=== PATIENT | female | born 1990 | race Caucasian/White ===

== ENCOUNTER 2018-10-10 14:09 | Emergency (ER) | payer SELFPAY ==
--- NOTE | 2018-10-10 16:17 | ER Document Report ---
HPI - HPI Patient complains to provider of: Dental pain Time Seen by Provider: 10/10/18 16:17 Pain Level: 4 Notes: This is a 27-year-old female with a history of anxiety and depression and mild seasonal asthma not on any medication presenting with toothache. Patient states this has been ongoing for about 7 days. Patient describes the pain in the mouth as a 6 out of 10, sharp, aching, is located in the right upper posterior part of the mouth. Patient denies any difficulty swallowing. Patient denies any difficulty handling secretions. Patient states normal appetite and fluid intake. Patient denies any fever or chills. Patient denies any radiation of pain into the neck. Patient states that chewing, and hot and cold make the pain worse. Palpation makes pain worse and rest makes it better. Patient denies any difficulty breathing. Patient denies all complaints at this time. Patient is here for antibiotics. No recent antibiotics or steroids. No history of diabetes. She states she broke this tooth a while back. She is working on finding a dentist and getting her Medicaid transferred from [place]. - REPRODUCTIVE Reproductive: DENIES: : Past Medical History - General Information source: Patient - Social History Smoking Status: Never Smoker Cigarette use (# per day): No Chew tobacco use (# tins/day): No Frequency of alcohol use: None Drug Abuse: Marijuana - Occasional Occupation: Employed Family History: None, Arthritis, CAD, Hyperlipidemia, Hypertension, Malignancy Patient has suicidal ideation: No Patient has homicidal ideation: No Pulmonary Medical History: Reports: Hx Asthma - as a child Renal/ Medical History: Denies: Hx Peritoneal Dialysis Psychiatric Medical History: Reports: Hx Anxiety, Hx Depression Past Surgical History: Reports: Hx Dilation and Curettage, Hx Gynecologic Surgery - D&C - Immunizations Immunizations up to date: Yes Hx Diphtheria, Pertussis, Tetanus Vaccination: Yes Vertical Provider Document - CONSTITUTIONAL Agree With Documented VS: Yes Notes: >>>> PHYSICAL_EXAM: GENERAL_APPEARANCE: well_nourished, alert, cooperative, no_acute_distress, no_obvious_discomfort. VITALS:reviewed, see vital signs table. EYES: PERRL, EOMI, conjunctiva_clear. NOSE: no_nasal_discharge. MOUTH: (-)decreased moisture. there are multiple dental caries noted. Tooth # 5 and 7 are broken, eroded to gumline and extremely carious. There is no localization for inflammation. There is no buccal swelling and tenderness to palpation. Uvula is midline. There is no trismus. There is no TMJ clicking produced most tenderness over the sternocleidomastoid muscles. There is no tenderness over the thyroid cartilage. There is no submandibular hardness. THROAT: no_tonsilar_inflammation, no_airway_obstruction. NECK: supple, no_neck_tenderness, (-)thyromegaly. LUNGS: no_wheezing, no_rales, no_rhonchi, (-)accessory muscle use, good air exchange bilateral. HEART: normal_rate, normal_rhythm, normal_S1, normal_S2, (-)S3, (-)S4, no_murmur, no_rub. EXTREMITIES: strength 5/5 in all extremities, good pulses in all extremities, no swelling\tenderness in the extremities, no edema. full rom. normal gait NEURO: motor and sensation intact to light touch, cranial nerves 2-12 intact SKIN: warm, dry, good_color, no_rash. MENTAL_STATUS: speech_clear, oriented_X_3 , normal_affect, responds_appropriately to questions. - INFECTION CONTROL TRAVEL OUTSIDE OF THE [place] IN LAST 30 DAYS: No Course - Re-evaluation Re-evalutation: MEDICAL DECISION_MAKING: this patient presents with tooth ache at this time. Patient is completely neurovascularly intact. Patient in no acute distress. There is no emergency that is present at this time. There was no localized gingival inflammation. There was no buccal swelling. Patient had no signs of active abscess at this time. Patient will be started on antibiotics and pain control. Definitive treatment as a dentist, and this was thoroughly explained to the patient. Pt will follow up closely with dentist in dental referral sheet was given. If the patient has any acute change or worsening sx patient will return to emergency Department immediately. Patient was in agreement with this treatment plan. Patient remained in stable condition and was very pleasant. vss. afebrile. well appearing. satting well on ra. will dc with pcn vk and naproxen. gave medication precautions. Clinical impression: #1 toothache #2 dental caries Plan: Patient will be discharged home. Patient will follow up closely with in 48 hours with dental referral. ++I independently evaluated this patient++Documentation achieved through voice recording++ 10/10/18 16:37 According to the Drug database he has only received 8 Tylenol codeine 08/03/2018 in the last 2 years. 10/10/18 17:02 - Vital Signs Vital signs: Temp Pulse Resp BP Pulse Ox 98.6 F 59 L 16 109/60 98 10/10/18 14:21 10/10/18 14:21 10/10/18 14:21 10/10/18 14:21 10/10/18 14:21 Discharge - Discharge Clinical Impression: Pain, dental Condition: Stable Disposition: HOME, SELF-CARE Instructions: [facility], Penicillin V K ([facility]), Toothache ([facility]) Additional Instructions: Follow-up with dentist 1 to 2 days. Return for any worsening symptoms. No NSAID use of the naproxen. Take the antibiotics as prescribed. Prescriptions: Naproxen 500 mg PO BID PRN #20 tablet PRN Reason: Penicillin V Potassium [Penicillin Vk 500 mg Tablet] 500 mg PO QID 10 Days #40 tablet
[2018-10-10 17:21] VITALS: BP 104/58
== END 2018-10-10 17:20 | disposition home or self-care (01) ==
LOC: ER 14:09
DX: K02.9 Dental caries, unspecified (principal); K03.2 Erosion of teeth; K08.89 Other specified disorders of teeth and supporting structures; F12.10 Cannabis abuse, uncomplicated
CPT/HCPCS: 99282